=== PATIENT | female | born 1990 | race Hispanic/Latino ===

== ENCOUNTER 2017-05-10 22:29 | Day surgery (SDC) | payer MEDICAID, SELFPAY ==
[2017-05-10 22:53] VITALS: BMI 27.8
--- NOTE | 2017-05-10 23:01 | PDOC.LDHP ---
Labor and Delivery H&P Chief complaint: abdominal pain HPI: 27 yo G1 at 39.2 by 7.2w US here with complaint of abdominal pain which onset this morning. She denies associated loss of fluid, vaginal bleeding, or decreased movement. Her course has been uncomplicated to this point. She has no significant medical history. She takes only PNV and iron. Current gestational age (weeks): 39 (39.2) Due date: 05/15/17 Dating criteria: first trimester ultrasound (7.2w) Grav: 1 Current complications: none Abnormal US findings: No Current medications: pre-vivek vitamins, iron Social history: none - Physical Exam Vital signs reviewed and normal: yes General: NAD, resting Heart: other (Irregular rhythm with 3/6 systolic murmur heard best over mitral valve) Lungs: CTAB Abdomen: gravid Extremeties: no edema FHT: category 1 (Baseline 140), variability present [place] contractions every: 6-7 - Vaginal Exam cm dilated: 1 Effacement: 50% Station: -3 - OB Labs Blood type: O RH: positive Antibody Screen: negative HIV: negative RPR: negative HEPSAg: negative 1 hour GCT: negative GBS: negative Rubella: immune - Assessment Term , membranes intact, inconsistent contractions - Plan Plan: observation in L&D -: Pt does not appear to be in labor. FHT are reassuring. Will monitor pt on L&D and recheck in 2 hours. Plan to discharge if she does not make significant change at recheck with instructions to return if she contracts q5 minutes for at least an hour, loses fluid or blood per vagina, or has decreased movement. <Valentino Mock - Last Filed: 05/10/17 22:56> <Ailyn Trevizo - Last Filed: 05/11/17 00:59> Allergies/Adverse Reactions: Allergies Allergy/AdvReac Type Severity Reaction Status Date / Time No Known Allergies Allergy Verified 05/10/17 22:50 Attending Addendum - Attending Addendum Date/Time: 05/11/17 0056 I personally evaluated the patient and discussed the management with Dr. Mock I agree with the History, Examination, Assessment and Plan documented above with any addition or exceptions noted below- 27 yo @39 2/7 weeks presented c/o ctx. Denies any VB, LOF (+)FM. Denies SAUL, visual change. Afebrile VSS SVE 1/50%/-2. Category 1 FHTs. [place] ctx q6-7 min. Patient sent to ambulate for 2 hours. If no cervical change, will d/c home with labor precautions. <Ailyn Trevizo - Last Filed: 05/11/17 00:59>
== END 2017-05-11 01:56 | disposition home or self-care (01) ==
LOC: L&D/OP 22:29
PROVIDERS: ATTEND Family Medicine
DX: O47.1 False labor at or after 37 completed weeks of gestation (principal); Z79.899 Other long term (current) drug therapy; Z3A.39 39 weeks gestation of pregnancy

== ENCOUNTER 2017-05-12 03:58 | Day surgery (SDC) | payer OTHER ==
[2017-05-12 04:40] VITALS: BP 125/66; TEMP 98.7
--- NOTE | 2017-05-12 05:08 | PDOC.LDHP ---
Labor and Delivery H&P Chief complaint: contractions HPI: 27 yo G1 at 39.4 by 7.2 week sono here with complaint of back pain associated with contractions. The pain and contractions have been present for about 2 days. She was seen here on 05/10 for similar symptoms. She states that the pain now is worse than before, however the frequency of the contractions is about the same. She denies loss of fluid or blood per vagina. She denies decreased movement. Her has been uncomplicated thus far. She is requesting medicine for pain control. Current gestational age (weeks): 39 (39.4) Due date: 05/15/17 Dating criteria: first trimester ultrasound Grav: 1 Current complications: none Abnormal US findings: No Current medications: pre- vitamins Allergies/Adverse Reactions: Allergies Allergy/AdvReac Type Severity Reaction Status Date / Time No Known Allergies Allergy Verified 05/12/17 04:32 Social history: none - Physical Exam Vital signs reviewed and normal: yes General: breathing through contractions Heart: RRR (Systolic murmur, unchanged from previous exam on 05/10) Lungs: CTAB Abdomen: gravid (Non tender) Extremeties: no edema FHT: category 1, variability present, absent or minimal variables [place] contractions every: 8 - Vaginal Exam cm dilated: 1 Effacement: 25% Station: -3 - OB Labs Blood type: O RH: positive Antibody Screen: negative HIV: negative RPR: negative HEPSAg: negative 1 hour GCT: negative GBS: negative Urine drug screen: negative Rubella: immune - Assessment Term in latent labor - Plan Plan: observation in L&D -: Observe in L&D and give meds for pain control. Will also discuss other methods of pain control such as hot bath and resting on all fours as this may be related to positioning. Recheck in 2 hours, send home if pain is controlled at that time.
[2017-05-12] MEDS ORDERED: Morphine 10 MG/ML VIAL IM SCH (05:15)
[2017-05-13] MEDS ORDERED: FLU VACC QS2017-18 36 mo. & older 0.5 ML SYRINGE IM ONE (09:00)
== END 2017-05-12 06:00 | disposition home or self-care (01) ==
LOC: L&D/OP 03:58
PROVIDERS: ATTEND Obstetrics & Gynecology
DX: O47.1 False labor at or after 37 completed weeks of gestation (principal); Z79.899 Other long term (current) drug therapy; Z3A.39 39 weeks gestation of pregnancy
CPT/HCPCS: J2270

== ENCOUNTER 2017-05-13 07:44 | Inpatient (IN) | payer MEDICAID, OTHER, SELFPAY ==
[2017-05-13 08:20] VITALS: BMI 30.7
[2017-05-13 09:14] LABS: Amnisure Test RUPTURE DETECTED (No Rupture)
[2017-05-13 09:15] LABS: Amnisure Internal Control QC ACCEPTABLE (ACCEPTABLE)
[2017-05-13] MEDS ORDERED: Lidocaine 1% (PF) 30 ML VIAL SC PRN (10:03)
[2017-05-13] MEDS ORDERED: Ondansetron HCl/PF 4 MG/2 ML Vial IVP PRN (10:03)
[2017-05-13] MEDS ORDERED: Acetaminophen 500 MG TAB PO PRN (10:03)
[2017-05-13] MEDS ORDERED: Promethazine HCl 25 MG/ML VIAL IM PRN (10:03)
[2017-05-13] MEDS ORDERED: LR / Pitocin 40 units/1000 ml 1,000 ML IV PRN (10:03)
[2017-05-13] MEDS ORDERED: Ibuprofen 800 MG TAB PO PRN (10:03)
[2017-05-13] MEDS: Lactated Ringer's 1,000 ML IV SCH ×4 (10:12→23:35)
[2017-05-13] MEDS ORDERED: DISCONTINUE ALL PREVIOUS NARCOTICS FS SCH (10:15)
[2017-05-13] MEDS ORDERED: Bupivacaine 0.5% 20 ML, Fentanyl 400 MCG in Sodium Chloride 0.9% 72 ML EPIDURAL SCH (10:15)
[2017-05-13 10:32] LABS: Hemoglobin 12.3 g/dL (12.0-16.0); Mean Corpuscular HGB CONC 34.2 g/dL (32.0-36.0); Mean Corpuscular Hemoglobin 29.9 pg (27.0-31.0); Mean Corpuscular Volume 87.3 fl (81.0-99.0); Mean Platelet Volume 8.8 fL (7.4-10.4); Platelet Count 163 thou/uL (130-400); RBC Distribution Width 12.7 % (11.5-14.5); Red Blood Cell (RBC) Count 4.13 mill/uL (4.20-5.40)
--- NOTE | 2017-05-13 10:41 | PDOC.LDHP ---
Labor and Delivery H&P Chief complaint: contractions, loss of fluid (approx 3 am) HPI: 27yo G1 at 39.5wk by 7.2wk US who presents after LOF (trickling) which began at approx 3 am today. She also has been c/o regular ctx since 2 days [employer], but they have increased in strength, intensity and frequency after the LOF. No VB. Feeling nml FM. Current gestational age (weeks): 39 (39.5) Due date: 05/15/17 Dating criteria: first trimester ultrasound (7.2wk) Grav: 1 Para: 0 OB History Details: BV- treated Current complications: none Abnormal US findings: No Past Medical History: none Current medications: pre-vivek vitamins Previous surgical history: none Social history: none - Physical Exam Vital signs reviewed and normal: yes General: NAD, resting, breathing through contractions (painful contractions) Heart: RRR Lungs: CTAB Abdomen: gravid Extremeties: no edema FHT: category 1 [place] contractions every: 4-6 minutes, strong 120-160sec contractions - Vaginal Exam cm dilated: 3 (3.5 per RN) Effacement: 90% Station: -1 - OB Labs Blood type: O RH: positive Antibody Screen: negative HIV: negative RPR: negative HEPSAg: negative 1 hour GCT: negative GBS: negative Urine drug screen: not done Rubella: immune Additional Labs: Amnisure (+) - Assessment L&D Assessment: term rupture in membranes - Plan Plan: admit to L&D, labor augmentation if indicated, informed consent obtained, anesthesia consult for pain management <Sheela Sorensen - Last Filed: 05/13/17 10:38> <Riddhi Peña - Last Filed: 05/13/17 10:54> Allergies/Adverse Reactions: Allergies Allergy/AdvReac Type Severity Reaction Status Date / Time No Known Allergies Allergy Verified 05/12/17 04:32 Attending Addendum - Attending Addendum Date/Time: 05/13/17 1053 I personally evaluated the patient and discussed the management with Dr. Sorensen on 05/13/17. I agree with the History, Examination, Assessment and Plan documented above with any addition or exceptions noted below. Patient is a G1 at 39.5 with SROM and spontaneous labor. Getting her epidural now. GBS negative. Routine, uncomplicated . Expectant management. <Riddhi Peña - Last Filed: 05/13/17 10:54>
[2017-05-13] MEDS ORDERED: Lactated Ringer's 500 ML IV PRN (11:06)
[2017-05-13] MEDS ORDERED: ePHEDrine/0.9% NaCl/PF SYRINGE 50 mg/10 ml SLOW IVP PRN (11:06)
[2017-05-13] MEDS ORDERED: Eucerin (Mineral Oil/Petrolatum,White) 30 gm Jar TOP PRN (11:06)
[2017-05-13] MEDS ORDERED: Naloxone HCl 0.4 mg/ml Vial IVP PRN ×2 (11:06)
[2017-05-13 11:07] LABS: HBSAg Index 0.15 S/CO (0-0.99); Hep B Surf Ag Non-Reactive S/CO (NonReactive); Syphilis Antibody Nonreactive (Nonreactive); Syphilis Antibody Index 0.03 S/CO (<1.00 Non-Reactive)
[2017-05-13] MEDS ORDERED: Communication Order-Pharmacy FS SCH (11:15)
--- NOTE | 2017-05-13 17:19 | PDOC.LDPN ---
Labor & Delivery Progress Note - Subjective Subjective: comfortable (s/p epidural) - Objective Vital signs reviewed and normal: yes General: NAD, resting SVE: per RN: 5.5/100/-1 FHT: category 1, variability present [place] contractions every: 4-6 min AROM: clear fluid - Assessment (1) Term Code(s): Z34.80 - ENCOUNTER FOR SUPRVSN OF NORMAL , UNSP TRIMESTER Current Visit: Yes Status: Acute (2) Active labor Code(s): [id number] - Current Visit: Yes Status: Acute Plan: continue plan of care
--- NOTE | 2017-05-13 17:21 | PDOC.LDPN ---
Labor & Delivery Progress Note - Subjective Subjective: comfortable, no concerns - Objective Vital signs reviewed and normal: yes General: NAD, resting Uterine fundus: non tender SVE: 7/100/0 per RN FHT: category 1, early decelerations, variability present [place] contractions every: 2-5 min FSE placed: yes (per RN) - Assessment (1) Term Code(s): Z34.80 - ENCOUNTER FOR SUPRVSN OF NORMAL , UNSP TRIMESTER Current Visit: Yes Status: Acute (2) Active labor Code(s): [id number] - Current Visit: Yes Status: Acute Plan: continue plan of care
--- NOTE | 2017-05-13 17:22 | PDOC.LDPN ---
Labor & Delivery Progress Note - Subjective Subjective: comfortable - Objective Vital signs reviewed and normal: yes General: NAD, resting Uterine fundus: non tender SVE: 9/100/0, FSE removed (not working) FHT: category 1, category 2 (cat 1-2 (alternating with mod to min variability) ) , early decelerations [place] contractions every: 2-5 min Other exam findings: FSE bent in place, removed and external toco restarted - Assessment (1) Term Code(s): Z34.80 - ENCOUNTER FOR SUPRVSN OF NORMAL , UNSP TRIMESTER Current Visit: Yes Status: Acute (2) Active labor Code(s): [id number] - Current Visit: Yes Status: Acute Plan: continue plan of care
--- NOTE | 2017-05-13 18:45 | PDOC.LDPN ---
Labor & Delivery Progress Note - Subjective Subjective: comfortable - Objective Vital signs reviewed and normal: yes General: NAD Uterine fundus: non tender SVE: @ [address] Douglas Dilation: 9 Effacement: 100% Station: 0 FHT: category 1, early decelerations, variability present [place] contractions every: 4-5 minutes - Assessment (1) Active labor Code(s): [id number] - Current Visit: Yes Status: Acute (2) Term Code(s): Z34.80 - ENCOUNTER FOR SUPRVSN OF NORMAL , UNSP TRIMESTER Current Visit: Yes Status: Acute Plan: continue plan of care -: G1 @ 39.5 WGA by 7.2 wk US here in active labor SVE 9/100/0 Cat [address] for pain control -Continue routine care <Sheela Douglas - Last Filed: 05/13/17 18:42> Attending Addendum - Attending Addendum Date/Time: 05/13/172026 I personally evaluated the patient and discussed the management with Dr. Douglas. I agree with the History, Examination, Assessment and Plan documented above with any addition or exceptions noted below. Dr. Rodrigez's continuity, who will be assuming care. I am in house if necessary. <Yovanny Yip - Last Filed: 05/13/17 20:27>
[2017-05-13] MEDS: Acetaminophen 325 MG TAB PO PRN (20:58)
--- NOTE | 2017-05-13 21:06 | PDOC.LDPN ---
Labor & Delivery Progress Note - Subjective Subjective: comfortable - Objective Abnormal vital signs: Temp to 100.0, went down to 99 without any intervention, Normal BP General: NAD Uterine fundus: non tender SVE: 7/100/[address] Rodrigez Dilation: 7 Effacement: 100% Station: 0 FHT: category 1, early decelerations, variability present [place] contractions every: 5-6 minutes Other exam findings: head position LOT Procedures: IUPC placed IUPC placed: yes Resuscitative measures: maternal position change - Assessment (1) Active labor Code(s): [id number] - Current Visit: Yes Status: Acute (2) Term Code(s): Z34.80 - ENCOUNTER FOR SUPRVSN OF NORMAL , UNSP TRIMESTER Current Visit: Yes Status: Acute Plan: continue plan of care, pitocin for augmentation -: G1 @ 39.5 WGA by 7.2 wk US here in active labor SVE 7/100/0 Cat [address] for pain control -IUPC placed, inadequate contractions at this time -Pit for labor augmentation -Continue to monitor closely
[2017-05-13] MEDS: Fentanyl 4mcg/Marcaine 0.1% Cassette 100 ML EPIDURAL SCH (21:10)
[2017-05-13] MEDS ORDERED: LR 500 ML/Oxytocin 10 units 500 ML IV SCH (21:15)
[2017-05-13] MEDS ORDERED: Fentanyl 100 MCG/2 ML VIAL ONE (22:43)
--- NOTE | 2017-05-14 00:33 | PDOC.LDPN ---
Labor & Delivery Progress Note - Subjective Subjective: painful contractions - Objective Vital signs reviewed and normal: yes General: NAD Uterine fundus: non tender SVE: @ 0030 by nurse Dilation: 8 Effacement: 100% Station: 1+ FHT: category 1, early decelerations, variability present [place] contractions every: 2-3 minutes, adequate ctx for 1 hour on pit at 6 - Assessment (1) Active labor Code(s): [id number] - Current Visit: Yes Status: Acute (2) Term Code(s): Z34.80 - ENCOUNTER FOR SUPRVSN OF NORMAL , UNSP TRIMESTER Current Visit: Yes Status: Acute Plan: continue plan of care, pitocin for augmentation -: G1 @ 39.6 WGA by 7.2 wk US here in active labor SVE 8/100/+1 Cat [address] for pain control IUPC in place, ctx have been adequate for the past hour -Pit for labor augmentation -Continue to monitor closely -Will recheck in 2 hours
--- NOTE | 2017-05-14 02:20 | PDOC.LDPN ---
Labor & Delivery Progress Note - Subjective Subjective: painful contractions, vaginal pressure - Objective Vital signs reviewed and normal: yes General: breathing through contractions Uterine fundus: palpable contractions SVE: @ [address] Douglas Dilation: anterior lip Effacement: 100% Station: 1+ FHT: category 2, late decelerations (4 late decels that resolved with position change), variability present [place] contractions every: 2-5 minutes - Assessment (1) Active labor Code(s): [id number] - Current Visit: Yes Status: Acute (2) Term Code(s): Z34.80 - ENCOUNTER FOR SUPRVSN OF NORMAL , UNSP TRIMESTER Current Visit: Yes Status: Acute Plan: continue plan of care, pitocin for augmentation -: G1 @ 39.6 WGA by 7.2 wk US here in active labor SVE 9.5/100/+1 Cat [address] for pain control IUPC in place, ctx have been adequate for the past 2.5 hours -Pit for labor augmentation, currently at 6 -Continue to monitor closely -Will recheck in 30 minutes-1 hour -maternal position changes for late decels
[2017-05-14] MEDS: Fentanyl 4mcg/Marcaine 0.1% Cassette 100 ML EPIDURAL SCH (02:41)
[2017-05-14] MEDS ORDERED: Lidocaine 1% (PF) 30 ML VIAL ONE (05:31)
--- NOTE | 2017-05-14 06:44 | PDOC.OPDEL ---
OB Operative/Delivery Note Delivery Dr/Surgeon: Sheela Douglas MD, Brent Rodrigez MD, Mony Grey DO Pre-Delivery Diagnosis: active labor, ruptured membrane Procedure/Post Delivery Dx: operative vaginal delivery Weeks gestation: 39 (6 days) Anesthesia: epidural (also had a pudendal block prior to vacuum delivery and local lidocaine for laceration repair) - Findings A Sex: female (viable) - 1 min: 8 - 5 min: 9 - Additional Findings/Plan Placenta delivered: spontaneous (intact, 3 vessel cord noted) Repaired Obstetrical Laceration: 2nd degree (midline episiotomy was cut during vacuum assisted delivery and the 2nd degree lac was repaired with 3-0 vicryl) Estimated blood loss: 250 mL Compilations/Other Findings: vacuum assisted delivery at 0537 on 05/14 due to prolonged second stage of labor. 1 involuntary release of the vacuum, 2 minutes of application time, delivery achieved during one contraction, an episiotomy was cut during the delivery of the vacuum. After the jaw was in view the vacuum was released and the anterior shoulder and then the rest of the was delivered in the routine fashion. There was no nuchal cord. The mouth and nares were bulb suctioned. Post delivery plan: routine recovery
[2017-05-14] MEDS ORDERED: Milk Of Magnesia 30 ML UDCUP PO PRN (08:39)
[2017-05-14] MEDS ORDERED: Lanolin Ointment 7 GM TUBE TOP PRN (08:39)
[2017-05-14] MEDS ORDERED: Ibuprofen 800 MG TAB PO SCH (08:39)
[2017-05-14] MEDS ORDERED: Adacel (T-DAP) 0.5 ML VIAL IM ONE (08:39)
[2017-05-14] MEDS ORDERED: Bisacodyl 10 MG SUPP PR PRN (08:39)
[2017-05-14] MEDS ORDERED: Preparation H Ointment 28 GM TUBE PR PRN (08:39)
[2017-05-14] MEDS ORDERED: LR / Pitocin 40 units/1000 ml 1,000 ML IV SCH (08:39)
[2017-05-14] MEDS ORDERED: Benzocaine/Menthol 20-0.5% 60 ML CAN TOP PRN (08:39)
[2017-05-14] MEDS: Ferrous Sulfate 325 MG TAB PO SCH ×2 (11:47→17:25)
[2017-05-14] MEDS: Prenatal Vitamin 1 TAB PO SCH (11:47)
[2017-05-14] MEDS: Ibuprofen 800 MG TAB PO SCH ×2 (11:47→17:25)
[2017-05-14] MEDS: Docusate Calcium (SURFAK) 240 MG CAP PO SCH ×2 (11:47→19:53)
[2017-05-14 12:29] LABS: Hemoglobin 10.1 g/dL (12.0-16.0); Platelet Count 117 thou/uL (130-400)
[2017-05-14] MEDS: Lactated Ringer's 1,000 ML IV SCH (17:26)
[2017-05-14] MEDS: Acetaminophen 325 MG TAB PO PRN (19:53)
[2017-05-15] MEDS: Ibuprofen 800 MG TAB PO SCH ×3 (00:07→17:10)
--- NOTE | 2017-05-15 06:54 | PDOC.PP ---
Post Progress Note Post Day #: 1 Subjective: Pt doing well this morning. Denies any headaches or dizziness. Denies any fever/ chills. Denies any SOB. Denies any acute events overnight. Pt does report having some pain in her ankles and feet bilaterally. No redness or swelling noted. PO intake tolerated: yes Flatus: yes Ambulation: yes (She has not been up walking much per reports of nurse) Vital Signs (12 hours) Temp Pulse Resp BP BP Pulse Ox 05/15/17 05:15 97.6 F 71 20 98/56 L 05/15/17 00:00 98.4 F 72 18 92/54 L 05/14/17 19:45 98.6 F 86 18 113/50 L 98 Weight Weight 59.874 kg - Physical Examination General: NAD Cardiovascular: no m/r/g, RRR Respiratory: clear to auscultation bilaterally, non-labored breathing Abdominal: + bowel sounds, lochia, no distention, appropriately TTP Fundus firm & at: umbilicus Deviation from normal: homans positive, no redness or swelling noted Skin: no rash Neurological: no gross focal deficits Psychiatric: A&Ox3, normal affect Result Diagrams: 05/14/17 11:52 Additional Labs: Post Labs Hep Bs Antigen Non-Reactive S/CO (NonReactive) 05/13/17 10:17 (1) Term delivered Code(s): O80 - ENCOUNTER FOR FULL-TERM UNCOMPLICATED DELIVERY Status: Acute (2) Premature rupture of membranes Code(s): O42.90 - HERNAN ROM, 7TH0 BETW RUPT & ONST LABR, UNSP WEEKS OF GEST Status: Acute - Assessment/Plan 27 yo delivered a viable TAGA Female infant via vacuum assisted vaginal delivery. 2nd degree lac was noted and repaired in usual fashion. Mom had premature rupture of membranes and time from rupture to delivery was 26 hours. -Routine Post- care -Pt doing well. Advise to ambulate often. -Pumping at this time. -No sign of fevers or infection -Pt dizzy and having headaches yesterday. Vital signs stable and repeat post hemagram did not show significant drop. Advised mom to drink plenty of fluids. If continues to get dizzy may bolus with fluid and start iron. Tayla's sign positive. Having bilateral ankle and feet pain. No swelling or redness noted. No increase in heat. -Pt has not been as ambulatory per nursing. Advised pt to get up and move around. -Will continue to monitor. If gets red or worse unilaterally may consider U/S <Ramírez Marin - Last Filed: 05/15/17 10:00> Vital Signs (12 hours) Temp Pulse Resp BP 05/15/17 07:50 98.1 F 71 16 98/55 L 05/15/17 05:15 97.6 F 71 20 98/56 L 05/15/17 00:00 98.4 F 72 18 92/54 L Weight Weight 59.874 kg Result Diagrams: 05/14/17 11:52 Additional Labs: Post Labs Hep Bs Antigen Non-Reactive S/CO (NonReactive) 05/13/17 10:17 <Lisa Joel - Last Filed: 05/15/17 11:56> Attending Addendum - Attending Addendum Date/Time: 05/15/17 1152 I personally evaluated the patient and discussed the management with Drs. Marin and Edu. I agree with the History, Examination, Assessment and Plan documented above with any addition or exceptions noted below. PPD # 1 s/p VAVD Doing well. 2+ankle edema without calf tenderness, redness or warmth. Negative Tayla's sign on my exam. Continue routine care <Lisa Joel - Last Filed: 05/15/17 11:56>
[2017-05-15] MEDS: Lactated Ringer's 1,000 ML IV SCH ×2 (07:21→09:01)
[2017-05-15] MEDS: Ferrous Sulfate 325 MG TAB PO SCH ×2 (07:29→17:08)
[2017-05-15] MEDS: Docusate Calcium (SURFAK) 240 MG CAP PO SCH ×2 (07:29→21:32)
[2017-05-15] MEDS: Prenatal Vitamin 1 TAB PO SCH (07:29)
[2017-05-15 20:37] VITALS: BP 119/62; TEMP 98.6
[2017-05-16] MEDS: Ibuprofen 800 MG TAB PO SCH ×3 (05:29→14:02)
[2017-05-16] MEDS: Lactated Ringer's 1,000 ML IV SCH (05:29)
--- NOTE | 2017-05-16 06:58 | PDOC.PP ---
Post Progress Note Post Day #: 2 Subjective: Pt doing well. Reports having runny nose and sore throat this morning. Reports foot and ankle pain doing better. Reports having light lochia. Denies any fever or chills. Denies any acute events overnight. No other concerns at this time PO intake tolerated: yes Flatus: yes Ambulation: yes Vital Signs (12 hours) Temp Pulse Resp BP 05/15/17 20:15 98.6 F 61 20 119/62 Weight Weight 59.874 kg - Physical Examination General: NAD Cardiovascular: no m/r/g, RRR Respiratory: clear to auscultation bilaterally, non-labored breathing Abdominal: + bowel sounds, no distention, appropriately TTP Fundus firm & at: 2 fingers below umbilicus Extremities: negative homans (B) Skin: no rash Neurological: no gross focal deficits Psychiatric: A&Ox3, normal affect Result Diagrams: 05/14/17 11:52 Additional Labs: Post Labs Hep Bs Antigen Non-Reactive S/CO (NonReactive) 05/13/17 10:17 (1) Term delivered Code(s): O80 - ENCOUNTER FOR FULL-TERM UNCOMPLICATED DELIVERY Status: Acute (2) Premature rupture of membranes Code(s): O42.90 - HERNA[place] ROM, 7TH0 BETW RUPT & ONST LABR, UNSP WEEKS OF GEST Status: Resolved - Assessment/Plan 27 yo delivered a viable TAGA Female via vacuum assisted vaginal delivery. 2nd degree lac was noted and repaired in usual fashion. Mom had prolonged rupture of membranes and time from rupture to delivery was 26 hours. -Routine Post- care -Pt doing well. Advise to ambulate often. -Pumping at this time. consult oredered -No sign of fevers or infection -Pt reports having runny nose and a little sore throat this morning. Will try some zyrtec for sx's at this time. -Pt dizzy and having headaches Sunday. Vital signs stable and repeat post hemagram did not show significant drop. Advised mom to drink plenty of fluids. If continues to get dizzy may bolus with fluid and start iron. Pt having trace edema in both legs bilaterally. R. leg a little more swollen than the left. -Pt reports pain doing better in feet and ankles from before. -Will continue to monitor. If gets red or worse unilaterally may consider U/S <Ramírez Marin - Last Filed: 05/16/17 06:57> Vital Signs (12 hours) Temp Pulse Resp 05/16/17 08:00 98.6 F 61 20 Weight Weight 59.874 kg Result Diagrams: 05/14/17 11:52 Additional Labs: Post Labs Hep Bs Antigen Non-Reactive S/CO (NonReactive) 05/13/17 10:17 <Lisa Joel - Last Filed: 05/16/17 11:35> Attending Addendum - Attending Addendum Date/Time: 05/16/17 1133 I personally evaluated the patient and discussed the management with Drs. Marin and Edu. I agree with the History, Examination, Assessment and Plan documented above with any addition or exceptions noted below. <Lisa Joel - Last Filed: 05/16/17 11:35>
[2017-05-16] MEDS ORDERED: Loratadine 10 MG TAB PO ONE (07:03)
[2017-05-16] MEDS: Prenatal Vitamin 1 TAB PO SCH (10:54)
[2017-05-16] MEDS: Docusate Calcium (SURFAK) 240 MG CAP PO SCH (10:54)
[2017-05-16] MEDS: Ferrous Sulfate 325 MG TAB PO SCH (10:54)
== END 2017-05-16 16:42 | disposition home or self-care (01) | DRG 775 ==
LOC: L&D/OP 07:44 → L&D 09:50 → 3SW 05-14 08:30
PROVIDERS: ADMIT Family Medicine; ATTEND Family Medicine
PROC: 10H07YZ Insertion of Other Device into Products of Conception, Via Natural or Artificial Opening (ICD-10-PCS; 2017-05-13)
PROC: 4A1H74Z Monitoring of Products of Conception, Cardiac Electrical Activity, Via Natural or Artificial Opening (ICD-10-PCS; 2017-05-13)
PROC: 10907ZC Drainage of Amniotic Fluid, Therapeutic from Products of Conception, Via Natural or Artificial Opening (ICD-10-PCS; 2017-05-13)
PROC: 10D07Z6 Extraction of Products of Conception, Vacuum, Via Natural or Artificial Opening (ICD-10-PCS; principal; 2017-05-14)
PROC: 0W8NXZZ Division of Female Perineum, External Approach (ICD-10-PCS; 2017-05-14)
DX: O63.1 Prolonged second stage (of labor) (principal); O42.02 Full-term premature rupture of membranes, onset of labor within 24 hours of rupture; Z37.0 Single live birth; Z3A.39 39 weeks gestation of pregnancy
CPT/HCPCS: 36415; 51702; 84112; 85014; 85018; 85027; 85049; 86780; 87340; 99285; A4216; J0595; J2001; J3010; J3490; J7050; J7120

== ENCOUNTER 2019-06-30 10:35 | Day surgery (SDC) | payer SELFPAY ==
[2019-06-30 11:30] VITALS: BMI 29.4
[2019-06-30] MEDS ORDERED: hydrALAZINE 20 MG/ML VIAL SLOW IVP PRN (12:12)
--- NOTE | 2019-06-30 12:33 | PDOC.FPROB ---
FMR OB H&P: HPI - History of Present Illness Chief Complaint: LOF Indentification: 29yo @ 38wga History of Present Illness: Patient is a 29F @ 38wga with PMHx of A2GDM that presents due to possible LOF. Patient reports that around 8pm last night she began to feel fluid down her pants when she sat up from the chair. She reports it continued at night and this morning so she came in. She states the fluid was clear. She denies any vaginal bleeding, other vaginal discharge, cp, sob, n/v/d. She states she is feeling a contraction every 30min though mild. +FM. Patient reports sexual intercourse within the last 48hrs. 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: Pap July 2018, reportedly wnl - Surgical History Sx History: none - Social History Social History: non-smoker, no alcohol use, no drug use - Family History Family History: No hx of family genetic conditions FMR OB H&P: Medications - Current Home Medications: Medication Instructions Recorded Confirmed Type Vitamin 1 tab PO DAILY tab 05/16/17 06/30/19 Rx metFORMIN [Glucophage] 500 mg PO QAM-WM 06/30/19 06/30/19 History Allergies/Adverse Reactions: Allergies Allergy/AdvReac Type Severity Reaction Status Date / Time No Known Allergies Allergy Verified 06/30/19 11:25 FMR OB H&P: ROS - Review of Systems General: denies: fever/chills, weight/appetite/sleep changes Eyes: denies: eye pain, vision changes ENT: denies: nasal congestion, rhinorrhea Cardiovascular: denies: chest pain, palpitation, edema Respiratory: denies: cough, shortness of breath Gastrointestinal: denies: abdominal pain, nausea, vomiting, diarrhea Genitourinary (Female): reports: contractions (q30min), other (possible LOF). denies: vaginal bleeding Musculoskeletal: denies: pain, stiffness Neurologic: denies: syncope, seizures Integumentary: denies: itching, rash Breast: denies: masses, skin changes Endocrine: denies: cold intolerance, heat intolerance Hematologic/Lymphatic: denies: prolonged or excessive bleeding, enlarged lymph nodes Psychological: denies: depression, anxiety FMR OB H&P: Vital Signs - Maternal Vital signs: BP 109/60, p73, O2 Sat 98% on RA - Heart Tones Baseline: 145 Variability: moderate Acceleration: present Deceleration: absent Category: category 1 [place] contractions every: 8-10min FMR OB H&P: Physical Exam - Physical Exam General: NAD, awake, alert and oriented HEENT: normocephalic and atraumatic, MMM Neck: supple, FROM Chest: non-tender to palpation, no lesions Heart: RRR, normal S1/S2 General: CTAB, no respiratory distress Abdomen: gravid, non-tender Musculoskeletal: pulses present, FROM in all four extremities Neurological: no clonus, no focal deficit Skin: no rash, good tugor Lymphatic: no unusual bruising or bleeding, no purpura Psychiatric: intact recent and remote memory, good judgement and insight - Pelvic Exam Vulva: normal hair distribution, no blood Cervix: no masses SVE: 06/01/-3 FMR OB H&P: A/P - Problem List (1) Term Status: Acute Code(s): Z34.80 - ENCOUNTER FOR SUPRVSN OF NORMAL , UNSP TRIMESTER (2) Gestational diabetes mellitus (GDM) affecting Status: Acute Code(s): O24.419 - GESTATIONAL DIABETES MELLITUS IN , UNSP CONTROL Disposition: Patient is a 29F @ 38wga with PMHx of A2GDM and GBS bactiuria that presents due to possible LOF. #Term , possible LOF -38wga -LOF reportedly started at 8pm 06/28 -sterile spec exam: vaginal discharge, -valsalva -amnisure negative -U/S demonstrates INDRA of 11 -FHT: basleine 145, +accels, no decels, ctx q8-10min - 06/01/-3 @ 1225, 3/-3 @ 1500 -Ferning was performed due to the vaginal discharge and incomplete certainty of pooling; ferning negative #A2GDM -patient reportedly started metformin last week, encourage to continue -A1C 5.5 #Hx of GBS Bactiuria -will require antibiotic prophylaxis during labor Dispo: the patient will be discharged with close follow up with [facility]. -amnisure, -ferning, and reassuring US are c/w intact membranes. Patient was provided with RTC/ED precautions including continued fluid loss, any signs of fever, increasing contractions, or decreased movement. Patient has a clinic appointment tomorrow and an US scheduled on Sunday. Patient has scheduled induction on July 08, 2019. Discussion: Date/Time: 06/30/19 4637 This H&P was discussed with . [Burke Rouse] and [Yovanny Yip] who agree with the above documentation and plan. Signature: Donna John MD PGY-1 Addendum - Attending - Attending Attestation Date/Time: 07/01/19 8739 I personally evaluated the patient and discussed the management with the team. I agree with the History, Examination, Assessment and Plan documented above with any addition or exceptions noted below. SSE with some white discharge, neg pooling/valsalva on my exam Negative ferning Negative amnisure AF reassuring d/c with appropriate labor precautions. Return if fever or foul discharge but I feel ROM is extremely unlikely given the above.
[2019-06-30 12:38] LABS: Amnisure Internal Control QC ACCEPTABLE (ACCEPTABLE)
[2019-06-30 12:48] LABS: Amnisure Test No Membranes Rupture (No Rupture)
== END 2019-06-30 15:34 | disposition home health service (06) ==
LOC: L&D/OP 10:35
PROVIDERS: ATTEND Family Medicine
DX: O99.89 Other specified diseases and conditions complicating pregnancy, childbirth and the puerperium (principal); N89.8 Other specified noninflammatory disorders of vagina; O24.415 Gestational diabetes mellitus in pregnancy, controlled by oral hypoglycemic drugs; Z79.84 Long term (current) use of oral hypoglycemic drugs; Z3A.38 38 weeks gestation of pregnancy
CPT/HCPCS: 84112; 99284

== ENCOUNTER 2019-07-03 04:50 | Inpatient (IN) | payer MEDICAID, OTHER, SELFPAY ==
[2019-07-03 05:35] VITALS: BMI 27.3
--- NOTE | 2019-07-03 05:42 | PDOC.FPROB ---
FMR OB H&P: HPI - History of Present Illness Chief Complaint: suspected SROM w/ contractions Indentification: History of Present Illness: 29YO @ 38.3 WGA by LMP c/w 10.2 week sono w/ A2GDM who presented to L&D with a CC of regular painful contractions that began @ ~0200. She finally decided to come in because she thought her water broke and the contractions were becoming increasingly more painful. She endorses movement and increased mucoid d/c but denies any vaginal bleeding. Took her metformin last night but not yet this morning. Primary Care Physician: [facility]- [facility] ac[facility]/ FMR OB H&P: Current - Care : 2 Para: 1001 Gestational age: 38.3 Due date: 07/14/19 Dating Criteria: LMP c/w 10.2 week sono Course/Complications: A2GDM, GBS bacteruria s/p tx, h/o BV s/p tx - OB Labs Blood type: O RH: positive Antibody Screen: negative HIV: negative RPR: negative HepBsAg: negative Rubella: immune Gonorrhea: negative Chlamydia: negative Pap Smear: done in 2019 @ HP 1 hour gtt: 167 A1c: 5.5 GBS: positive (GBS bacteruria this ) Additional labs: Accucheck 89 on presentation - Additional Ultrasound Additional: 05/20/19 [place] 43.1% FMR OB H&P: History - Past Medical History PMH: None - OB History OB History: #1 term - 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 No h/o STIs. - Surgical History Sx History: None - Social History Social History: No TAD. - Family History Family History: non-contributory FMR OB H&P: Medications - Current Home Medications: Medication Instructions Recorded Confirmed Type Vitamin 1 tab PO DAILY tab 05/16/17 06/30/19 Rx metFORMIN [Glucophage] 500 mg PO QAM-WM 06/30/19 07/03/19 History Allergies/Adverse Reactions: Allergies Allergy/AdvReac Type Severity Reaction Status Date / Time No Known Allergies Allergy Verified 07/03/19 05:36 FMR OB H&P: ROS - Review of Systems General: denies: fever/chills Eyes: denies: vision changes, double vision ENT: denies: nasal congestion, sore throat Cardiovascular: denies: chest pain, edema Respiratory: denies: cough, shortness of breath Gastrointestinal: denies: nausea, vomiting Genitourinary (Female): reports: vaginal discharge, contractions. denies: dysuria, hematuria, vaginal bleeding Musculoskeletal: denies: pain, swelling Neurologic: denies: syncope, headache Integumentary: denies: itching, rash FMR OB H&P: Vital Signs - Maternal Vital signs: Vital Signs - First Documented Temp Pulse Resp BP Pulse Ox 98.6 F 68 12 113/60 98 07/03/19 05:27 07/03/19 05:27 07/03/19 05:27 07/03/19 05:27 07/03/19 05:27 - Heart Tones Baseline: 140 Variability: minimal Acceleration: absent Deceleration: absent Category: category 2 [place] contractions every: 3-5 minutes FMR OB H&P: Physical Exam - Physical Exam General: awake, alert and oriented, other (mild distress 2/2 painful contractions) HEENT: normocephalic and atraumatic, grossly normal vision, grossly normal hearing Neck: supple, FROM Heart: RRR, normal S1/S2, no murmurs/rubs/gallops General: CTAB, no respiratory distress, good air movement, no rales/rhonchi, no wheezing, no retractions Abdomen: gravid Musculoskeletal: normal gait and station, FROM in all four extremities Neurological: cranial nerves II through XII intact, sensation to pain,touch and proprioception grossly normal, no focal deficit Skin: no rash Lymphatic: no unusual bruising or bleeding Psychiatric: intact recent and remote memory, good judgement and insight, normal mood and affect FMR OB H&P: Results - Labs Lab results: Accucheck 86 FMR OB H&P: A/P - Problem List (1) History of GBS (group B streptococcus) UTI, currently Current Visit: Yes Status: Acute Code(s): O09.899 - SUPERVISION OF OTHER HIGH RISK PREGNANCIES, UNSP TRIMESTER; Z87.440 - PERSONAL HISTORY OF URINARY ( TRACT) INFECTIONS (2) Gestational diabetes mellitus (GDM) affecting Current Visit: No Status: Acute Code(s): O24.419 - GESTATIONAL DIABETES MELLITUS IN , UNSP CONTROL (3) Term Current Visit: No Status: Acute Code(s): Z34.80 - ENCOUNTER FOR SUPRVSN OF NORMAL , UNSP TRIMESTER Disposition: Patient is a 29F @ 38.2 wga with PMHx of A2GDM and GBS bacteruria that presents due to regular painful contractions & suspected SROM. #Term in latent labor -/-2 with bulging bag on presentation w/ regular painful contractions q3-5 minutes. -FHTs: basleine 140s, no acels or decels with minimal variability, cat 2 strip - Will admit to L&D for labor management and administer an LR bolus & give juice 2/2 cat 2 strip. Will continue to monitor closely. - Patient desires an epidural, anesthesia consult placed. #A2GDM - On metformin which was started last week. Accucheck on presentation 86. Will continue Q2HR accuchecks & SSI PRN. #Hx of GBS Bacteruria -Aware, will require antibiotic prophylaxis. Dispo: Will admit to L&D for labor management due to imminent SROM and regular, painful contractions. Discussion: Date/Time: 07/03/19 0540 This H&P was discussed with Dr. Loco who agrees with the above documentation and plan. Addendum - Attending - Attending Attestation Date/Time: 07/04/19 0002 I discussed the assessment and management with Dr. Pierre this morning at time of admission. I agree with the History, Examination, Assessment and Plan documented above with any addition or exceptions noted below.
[2019-07-03] MEDS ORDERED: hydrALAZINE 20 MG/ML VIAL SLOW IVP PRN ×2 (05:44→14:31)
[2019-07-03] MEDS ORDERED: Carboprost 250 MCG/ML AMP IM PRN (06:03)
[2019-07-03] MEDS ORDERED: HYDROcodone/Acetaminophen 5/325 mg Tablet PO PRN ×2 (06:03)
[2019-07-03] MEDS ORDERED: Ondansetron PF 4 MG/2 ML Vial IVP PRN (06:03)
[2019-07-03] MEDS ORDERED: Ibuprofen 800 MG TAB PO PRN (06:03)
[2019-07-03] MEDS ORDERED: Acetaminophen 500 MG TAB PO PRN ×2 (06:03→14:31)
[2019-07-03] MEDS ORDERED: Lidocaine 1% (PF) 30 ML VIAL SC PRN (06:03)
[2019-07-03] MEDS ORDERED: Promethazine HCl 25 MG/ML VIAL IM PRN (06:03)
[2019-07-03] MEDS ORDERED: Methylergonovine 0.2 MG/ML VIAL IM PRN (06:03)
[2019-07-03] MEDS ORDERED: Misoprostol 200 MCG TAB PR PRN (06:03)
[2019-07-03] MEDS ORDERED: Lactated Ringer's 1,000 ML IV SCH (06:15)
[2019-07-03] MEDS ORDERED: Penicillin G Potassium 5 MILL.UNITS in Sodium Chloride 0.9% 100 ML IVPB SCH (06:15)
[2019-07-03 06:33] LABS: Hemoglobin 13.2 g/dL (12.0-16.0); Mean Corpuscular HGB CONC 33.9 g/dL (32.0-36.0); Mean Corpuscular Hemoglobin 29.7 pg (27.0-31.0); Mean Corpuscular Volume 87.7 fL (78.0-98.0); Mean Platelet Volume 9.6 fL (7.4-10.4); Platelet Count 148 thou/uL (130-400); RBC Distribution Width 12.3 % (11.5-14.5); Red Blood Cell (RBC) Count 4.46 mill/uL (4.20-5.40); White Blood Cell (WBC) Count 14.4 thou/uL (4.8-10.8)
[2019-07-03] MEDS ORDERED: Fentanyl 4 mcg/Bup 0.1% Cadd 100 ML ONE (06:39)
[2019-07-03 07:12] LABS: Syphilis Antibody Nonreactive (Nonreactive); Syphilis Antibody Index 0.03 S/CO (<1.00 Non-Reactive)
[2019-07-03 07:13] LABS: HBSAg Index 0.14 S/CO (0-0.99); Hep B Surf Ag Non-Reactive S/CO (NonReactive)
--- NOTE | 2019-07-03 09:37 | PDOC.LDPN ---
Labor & Delivery Progress Note - Subjective Subjective: comfortable - Objective Vital signs reviewed and normal: yes - Assessment (1) History of GBS (group B streptococcus) UTI, currently Code(s): O09.899 - SUPERVISION OF OTHER HIGH RISK PREGNANCIES, UNSP TRIMESTER; Z87.440 - PERSONAL HISTORY OF URINARY (TRACT) INFECTIONS Current Visit: Yes Status: Acute (2) Term Code(s): Z34.80 - ENCOUNTER FOR SUPRVSN OF NORMAL , UNSP TRIMESTER Current Visit: No Status: Acute -: Patient is a 29F @ 38.2 wga with PMHx of A2GDM and GBS bacteruria in labor #Term in latent labor -/-2 0530 - 100/0 @ 0930 -FHTs: basleine 140s, no acels or decels with minimal variability, cat 2 strip - previously periods of good variability - accel present on scalp stim - expectant mgmt for now, plan for AROM at 1030 after adequate GBS ppx #A2GDM -accuchecks #Hx of GBS Bacteruria -Aware, will require antibiotic prophylaxis. Addendum - Attending - Attending Attestation Date/Time: 07/03/19 5866 I personally evaluated the patient and discussed the management with Dr. Rouse. I agree with the History, Examination, Assessment and Plan documented above with any addition or exceptions noted below. Feel likely sleep cycle as intermittent areas of moderate variability and + accel with FSS. Plan for AROM. Anticipate .
[2019-07-03] MEDS: NS / Oxytocin 40 units/1000ml 1,000 ML IV PRN ×3 (10:20→14:26)
[2019-07-03] MEDS ORDERED: Penicillin G 2.5 MILL.units 2.5 MILL.UNITS in Premix Bag 1 BAG IVPB SCH (11:00)
--- NOTE | 2019-07-03 11:03 | PDOC.LDPN ---
Labor & Delivery Progress Note - Subjective Subjective: comfortable - Assessment (1) History of GBS (group B streptococcus) UTI, currently Code(s): O09.899 - SUPERVISION OF OTHER HIGH RISK PREGNANCIES, UNSP TRIMESTER; Z87.440 - PERSONAL HISTORY OF URINARY (TRACT) INFECTIONS Current Visit: Yes Status: Acute (2) Term Code(s): Z34.80 - ENCOUNTER FOR SUPRVSN OF NORMAL , UNSP TRIMESTER Current Visit: No Status: Acute -: Patient is a 29F @ 38.2 wga with PMHx of A2GDM and GBS bacteruria in labor #Term in latent labor -/-2 0530 - 8/100/0 @ 0930 - SROM 1000, clear fluid - ant lip/100/0 @ 1045 -FHTs: basleine 140s, accels with scalp stim, early decels, intermittent late, cat 2 strip -periods of good variability and accels - cont expectant mgmt, recheck in 20-30 min #A2GDM -accuchecks #Hx of GBS Bacteruria -adequate ppx Addendum - Attending - Attending Attestation Date/Time: 07/03/19 0373 I personally evaluated the patient and discussed the management with Dr. Rouse. I agree with the History, Examination, Assessment and Plan documented above with any addition or exceptions noted below. Cat 2 strip resolved with position changes.
--- NOTE | 2019-07-03 14:21 | PDOC.OPDEL ---
OB Operative/Delivery Note - Additional Findings/Plan Compilations/Other Findings: Vaginal Delivery Dictation Guideline Delivering Physician: Dr. Stephan Lee, Dr. Nereida John Attending: Dr. Yovanny Yip Procedure: Spontaneous Vaginal Delivery Anesthesia: epidural EBL: 200 ml Pre-op Diagnosis: 1. Term intrauterine in labor 2. Hx of A2GDM 3. Hx of delivery requiring midline episiotomy and vacuum 4. Hx of GBS Bacteriuria Post-op Diagnosis: 1. Term intrauterine , delivered 2-4. same as above Indications: A 29y/o female presents in latent labor Delivery Note: This is 29yo F @ 38.3wks who delivered a viable F infant at 1241 on 07/03/19. Following an uneventful antepartum course, a vigorous female was delivered over an intact perineum in the occipitoanterior position. Anterior Shoulder and then remainder of the body delivered. Nuchal cord x1. The head was held down and mouth and nares were bulb suctioned. Cord clamped and cut and cord blood collected. Placenta delivered intact in the [place] presentation with tailing products of conception, though no membranes or retained products palpated on physical exam. A 3 vessel cord noted. Fundal massage was performed and the fundus was firm. The cervix and vagina were inspected and 2nd degree laceration noted and repaired with 3-0 vicryl in the usual fashion with good approximation and hemostasis. Infant went to nursery in good condition for routine care. Apgars were 8/9 at 1 & 5 minutes, respectively. Patient tolerated delivery well and went to after routine recovery/care. Addendum - Attending - Attending Attestation Date/Time: 07/03/19 1520 I was present for the entire delivery.
[2019-07-03] MEDS: Lactated Ringer's 1,000 ML IV SCH ×2 (14:26→16:23)
[2019-07-03] MEDS ORDERED: Milk Of Magnesia 30 ML UDCUP PO PRN (14:31)
[2019-07-03] MEDS ORDERED: Benzocaine-Menthol 82.5 ML CAN TOP PRN (14:31)
[2019-07-03] MEDS ORDERED: NS / Oxytocin 40 units/1000ml 1,000 ML IV SCH (14:31)
[2019-07-03] MEDS ORDERED: Lanolin Ointment 7 GM TUBE TOP PRN (14:31)
[2019-07-03] MEDS ORDERED: Bisacodyl 10 MG SUPP PR PRN (14:31)
[2019-07-03] MEDS: Ferrous Sulfate 325 MG TAB PO SCH (16:20)
[2019-07-03] MEDS: Ibuprofen 800 MG TAB PO SCH ×2 (16:20→21:03)
[2019-07-03] MEDS: Docusate Calcium (SURFAK) 240 MG CAP PO SCH (21:03)
[2019-07-04] MEDS: Ibuprofen 800 MG TAB PO SCH ×2 (05:28→13:38)
[2019-07-04 05:38] LABS: Hemoglobin 10.4 g/dL (12.0-16.0)
--- NOTE | 2019-07-04 05:49 | PDOC.OBPPN ---
FMR OB PN: Subj - Interval History Hospital Day: 2 Day: 1 Chief Complaint: none, mild pain, mild lochia Indentification: 29yo delivered F @ 38.2 via on 07/02 @ 1241 Interval History: mild pain, mild lochia, ambulating, tolerating PO, voiding, no BM/flatus FMR OB PN: Obj - Maternal Vital signs: BP: [95-98/52-54] HR: [66-69] RR: [18] Tmax: [98.3F] Pox: [98]% on [RA] Wt: [ 59.421kg] - Urine output I&O: 07/02/19 07/03/19 07/04/19 06:59 06:59 06:59 Output Total 259 Balance -259 - Lochia Lochia: mild - Pain Management Intervention: oral medication FMR OB PN: Exam - Physical Exam General: NAD, awake, alert and oriented HEENT: normocephalic and atraumatic, MMM Neck: supple, FROM Chest: non-tender to palpation, no lesions Heart: RRR, normal S1/S2 General: CTAB, no respiratory distress Abdomen: soft, non-tender, bowel sound present Musculoskeletal: pulses present, FROM in all four extremities Neurological: no tremor, no focal deficit Skin: no rash, good tugor : no edema, appropriately tender Lymphatic: no unusual bruising or bleeding, no purpura Psychiatric: intact recent and remote memory, good judgement and insight FMR OB PN: Data - Labs Lab results: Laboratory Results - last 24 hr 07/03/19 07/03/19 07/03/19 05:51 06:23 06:23 WBC RBC Hgb Hct MCV MCH MCHC RDW Plt Count MPV POC Glucose 89 Syphilis IgG/IgM Ab Nonreactive Hep Bs Antigen Non-Reactive Blood Type Antibody Screen 07/03/19 07/03/19 07/03/19 06:23 06:23 07:39 WBC 14.4 H RBC 4.46 Hgb 13.2 Hct 39.1 MCV 87.7 MCH 29.7 MCHC 33.9 RDW 12.3 Plt Count 148 MPV 9.6 POC Glucose 111 H Syphilis IgG/IgM Ab Hep Bs Antigen Blood Type O POSITIVE Antibody Screen NEGATIVE 07/03/19 07/04/19 08:48 05:05 WBC RBC Hgb 10.4 L Hct 31.6 L MCV MCH MCHC RDW Plt Count MPV POC Glucose 82 Syphilis IgG/IgM Ab Hep Bs Antigen Blood Type Antibody Screen FMR OB PN: A/P - Problem List (1) care and examination Current Visit: Yes Status: Acute Code(s): Z39.2 - ENCOUNTER FOR ROUTINE FOLLOW-UP (2) Gestational diabetes mellitus (GDM) affecting Current Visit: No Status: Resolved Code(s): O24.419 - GESTATIONAL DIABETES MELLITUS IN , UNSP CONTROL Disposition: Patient is a 29yo >P1 that delivered a viable M via @ 38.2wga on 07/02 @ 1241. #Post- Day 1 -lochia mild -pain mild, well controlled -patient is passing gas, no BM yet -voiding appropriately -ambulating well -tolerating PO -pp contraception: uncertain, though she is interested; discussed options and patient will f/u at [facility] -f/u: [facility] in 2 weeks; baby to f/u with Dr. Lee #A2GDM -glucose controlled throughout labor -discontinued metformin -repeat glucose testing at 6 weeks post- #Hx of GBS bacteriuria -adequately treated with penicillin Diet: Regular Dispo: doing well, ambulating/tolerating PO/voiding. Possible discharge later today pending baby's bili Discussion: Date/Time: 07/04/19 0523 Signature: Nereida John MD- PGY-1 Addendum - Attending - Attending Attestation Date/Time: 07/04/19 6388 I personally evaluated the patient and discussed the management with Dr. John. I agree with the History, Examination, Assessment and Plan documented above with any addition or exceptions noted below.
[2019-07-04] MEDS: Ferrous Sulfate 325 MG TAB PO SCH (07:29)
[2019-07-04] MEDS ORDERED: Varicella virus, LIVE 0.5 ML VIAL SC ONE (09:00)
[2019-07-04] MEDS ORDERED: Prenatal Vitamin 1 TAB PO SCH (09:00)
[2019-07-04] MEDS ORDERED: Measles/Mumps/Rubella 10 MCG/0.5 ML VIAL SC ONE (09:00)
[2019-07-04] MEDS ORDERED: Adacel (T-DAP) 0.5 ML SYRINGE IM ONE (09:00)
[2019-07-04] MEDS: Docusate Calcium (SURFAK) 240 MG CAP PO SCH (09:08)
[2019-07-04 11:51] VITALS: BP 113/51; TEMP 99
== END 2019-07-04 17:15 | disposition home or self-care (01) | DRG 807 ==
LOC: L&D/OP 04:50 → L&D 12:56 → 3SW 16:00
PROVIDERS: ADMIT Family Medicine; ATTEND Family Medicine
PROC: 10E0XZZ Delivery of Products of Conception, External Approach (ICD-10-PCS; principal; 2019-07-03)
PROC: 0KQM0ZZ Repair Perineum Muscle, Open Approach (ICD-10-PCS; 2019-07-03)
DX: O24.429 Gestational diabetes mellitus in childbirth, unspecified control (principal); Z37.0 Single live birth; Z3A.38 38 weeks gestation of pregnancy; Z87.440 Personal history of urinary (tract) infections; O76 Abnormality in fetal heart rate and rhythm complicating labor and delivery; O69.81X0 Labor and delivery complicated by cord around neck, without compression, not applicable or unspecified; O70.1 Second degree perineal laceration during delivery
CPT/HCPCS: 36415; 36416; 51702; 85014; 85018; 85027; 86780; 86850; 86900; 86901; 87340; 99285; J2001; J2540; J3490